=== PATIENT | male | born 1940 | race Caucasian/White ===

== ENCOUNTER 2022-02-20 23:31 | Inpatient (IN) ==
[2022-02-20 23:48] LABS: ABS Basophils 0.1 10^3/ul (0-0.2); ABS Eosinophils 0.5 10^3/ul (0-0.6); ABS Monocytes 0.8 10^3/ul (0-0.8); ABS Neutrophils 6.6 10^3/ul (1.5-7.7); Hematocrit 35 % (42-52); Hemoglobin 11.4 g/dL (14.0-18.0); Lymphocyte % 11.1 %; Mean Corpuscular HGB Conc 33 g/dL (31-36); Mean Corpuscular Hemoglobin 30 pg (27-31); Mean Corpuscular Volume 90 fL (80-94); Mean Platelet Volume 7.8 fL (7.4-10.4); Platelet Count 186 10^3/uL (150-450); Red Blood Count 3.86 10^6 /uL (4.18-5.48); Red Cell Distribution Width 15 % (10-15)
[2022-02-21 00:38] LABS: INR 0.91 (0.89-1.11)
[2022-02-21 00:42] LABS: Calcium 8.6 mg/dL (8.6-10.3); Potassium 4.8 mmol/L (3.5-5.0); Total Bilirubin 0.3 mg/dL (0.2-1.0); eGFR CKD-EPI 16.5 (>60)
[2022-02-21 01:22] LABS: High Sensitivity Troponin 1 Hr 324 pg/mL (<20)
[2022-02-21] MEDS: Heparin 5000 UNITS/ML 1 mL VIAL IV SCH ×3 (02:03→19:17)
[2022-02-21] MEDS: Heparin DRIP 25,000 UNITS BAG 25,000 UNITS/500 ML BAG IV SCH (02:04)
[2022-02-21] MEDS ORDERED: Famotidine IV 10 MG/ML 2 ml VIAL (20 mg) IV SLOW PU ONE (02:29)
[2022-02-21] MEDS ORDERED: NS 0.9% 1000 ml BAG 1,000 ML IV SCH (02:30)
[2022-02-21] MEDS ORDERED: Dextrose 50% Syringe 50 ml 25 GM/50 ML SYRINGE IV PUSH PRN (03:19)
[2022-02-21 03:57] LABS: Urine Appearance Clear; Urine Bilirubin Negative (Negative); Urine Blood Negative (Negative); Urine Color Yellow; Urine Glucose 3+(>=500 mg/dL) (Negative); Urine Ketones Negative (Negative); Urine Nitrite Negative (Negative); Urine Protein 2+(100 mg/dL) (Negative); Urine Urobilinogen Negative (Negative)
[2022-02-21 04:07] LABS: Urine Bacteria Absent (Absent); Urine Red Blood Cell Trace(0-2/hpf) (Absent); Urine White Blood Cell Absent (Absent)
[2022-02-21 05:54] LABS: Phosphorus 4.3 mg/dL (2.5-5.0); Potassium 4.7 mmol/L (3.5-5.0); eGFR CKD-EPI 16.9 (>60)
[2022-02-21] MEDS: Insulin GLARGINE 100 un/ml 10 ml VIAL SUBCUT SCH (08:52)
[2022-02-21] MEDS: Aspirin EC 81 mg TAB.EC (enteric coated) PO SCH (08:54)
[2022-02-21] MEDS: Sodium Bicarb 650 mg (ANTACID) TAB PO SCH ×3 (08:57→20:36)
[2022-02-21] MEDS ORDERED: SODIUM ZIRCONIUM CYCLOSILICATE 10 GM PACKET PO SCH (09:00)
[2022-02-21 09:43] LABS: High Sensitivity Troponin 3 Hr 2848 pg/mL (<20)
[2022-02-21] MEDS: Isosorbide Mononit ER 60mg TAB PO SCH (12:30)
[2022-02-21] MEDS: Morphine 2 MG/ML SYRINGE IV PRN (17:37)
[2022-02-22] MEDS: Morphine 2 MG/ML SYRINGE IV PRN ×2 (01:39→09:38)
[2022-02-22] MEDS: Heparin 5000 UNITS/ML 1 mL VIAL IV SCH (01:55)
[2022-02-22] MEDS: Heparin DRIP 25,000 UNITS BAG 25,000 UNITS/500 ML BAG IV SCH (03:40)
[2022-02-22 09:11] LABS: ABS Basophils 0.1 10^3/ul (0-0.2); ABS Eosinophils 0.4 10^3/ul (0-0.6); ABS Lymphocytes 0.9 10^3/ul (1.0-4.8); ABS Monocytes 0.5 10^3/ul (0-0.8); ABS Neutrophils 5.5 10^3/ul (1.5-7.7); Hematocrit 33 % (42-52); Lymphocyte % 12.5 %; Mean Corpuscular HGB Conc 33 g/dL (31-36); Mean Corpuscular Hemoglobin 30 pg (27-31); Mean Corpuscular Volume 91 fL (80-94); Mean Platelet Volume 7.9 fL (7.4-10.4); Platelet Count 176 10^3/uL (150-450); Red Blood Count 3.66 10^6 /uL (4.18-5.48); Red Cell Distribution Width 15 % (10-15); White Blood Count 7.5 10^3/uL (3.5-10.8)
[2022-02-22] MEDS: Isosorbide Mononit ER 60mg TAB PO SCH (09:31)
[2022-02-22] MEDS: Aspirin EC 81 mg TAB.EC (enteric coated) PO SCH (09:32)
[2022-02-22] MEDS: Insulin GLARGINE 100 un/ml 10 ml VIAL SUBCUT SCH (09:32)
[2022-02-22] MEDS: Sodium Bicarb 650 mg (ANTACID) TAB PO SCH ×2 (09:32→12:54)
[2022-02-22 10:06] LABS: Calcium 8.3 mg/dL (8.6-10.3); Potassium 4.4 mmol/L (3.5-5.0); eGFR CKD-EPI 18.7 (>60)
[2022-02-22 16:13] VITALS: BP 136/71
== END 2022-02-22 16:00 | disposition home or self-care (01) | DRG 281 ==
LOC: ED 23:31 → SUATTDRO 02-21 02:29 → EDHOLD 02-21 02:29 → MEDTELE 02-21 17:30
PROVIDERS: ADMIT Internal Medicine; ATTEND Internal Medicine